=== PATIENT | female | born 1995 | race Two or more races ===

== ENCOUNTER 2025-08-25 07:22 | Emergency (ER) | payer MEDICAID, SELFPAY ==
[2025-08-25 07:32] VITALS: BP 100/64; PULSE 87; RESP 18; TEMP 36.9; O2SAT 99; BMI 25.0
--- NOTE | 2025-08-25 07:46 | XR_ITS ---
Examination: Abdomen sonogram, Limited Date and time of exam: August 25, 2025, 0931 hours INDICATIONS: Epigastric pain beginning 2 days ago Technique: Real-time arceo scale transabdominal sonographic images of the upper abdomen obtained. Findings: 6 mm gallbladder polyp No gallstones Normal gallbladder wall 0.3 cm Common bile duct 0.3 cm Pancreatic head 2.2 cm Liver 15 cm no liver lesions Normal hepatopetal portal venous flow Patent IVC IMPRESSION: 6 mm gallbladder polyp, negative for cholelithiasis, negative for cholecystitis Normal common bile duct
[2025-08-25] MEDS: ONDANSETRON ODT 4 MG TABRAP PO (07:52)
[2025-08-25] MEDS: HYDROcodone/APAP 5/325 TABLET 1 TAB PO (07:52)
[2025-08-25] MEDS: MG HYD/AL HYD/SIME (Maalox Reg) SUSP 30 ML UDC PO (07:52)
--- NOTE | 2025-08-25 07:52 | PD.EDABDPN ---
ED Abdominal Pain RME/HPI General Chief Complaint: Abdominal Pain Stated complaint: ABD PAIN ALL NIGHT 9/ Time seen by provider: 08/25/25 07:31 Arrival date/time: 08/25/25 07:22 30-year-old female with no known medical history presents to the emergency room with a chief complaint of 8 out of 10 epigastric abdominal pain that radiates to the right upper quadrant x 2 days Source: patient Mode of arrival: ambulatory Limitations: no limitations Related Data Previous Rx's ?Medication ?Instructions ?Recorded benzocaine 20 %-menthol 0.5 % 1 spray topical TID #56 grams 05/20/21 topical aerosol (Dermoplast (with menthol)) docusate sodium 100 mg capsule 100 mg PO BID #60 caps 05/20/21 (Colace) ibuprofen 800 mg tablet 800 mg PO Q6H PRN pain #120 tabs 05/20/21 lanolin 50 % topical ointment 1 applic topical TID PRN skin 05/20/21 irritation #15 grams vitamins with calcium 1 tab PO QDAY #60 tabs 05/20/21 no.72-iron 27 mg-folic acid 1 mg tablet ( Vitamins Plus Low Iron) omeprazole 40 mg capsule,delayed 40 mg PO QDAY #30 caps 08/25/25 release Allergies Allergy/AdvReac Type Severity Reaction Status Date / Time No Known Allergies Allergy Verified 08/25/25 07:25 Review of Systems Review of Systems Systems Reviewed: All systems reviewed, normal except as documented Constitutional Constitutional: Reports system reviewed and no additional complaints, except as documented, Denies fatigue, Denies fever(s), Denies headache(s) and Denies weakness Eyes Eyes: Reports system reviewed and no additional complaints, except as documented, Denies blurry vision and Denies change in vision ENT Ears, Nose, Mouth, and Throat: Reports system reviewed and no additional complaints, except as documented, Denies otalgia, Denies headache(s), Denies nasal congestion, Denies throat swelling and Denies vertigo Cardiovascular Cardiovascular: Reports system reviewed and no additional complaints, except as documented, Denies chest pain, Denies dyspnea and Denies dyspnea on exertion Respiratory Respiratory: Reports system reviewed and no additional complaints, except as documented, Denies chest congestion, Denies cough, Denies dyspnea and Denies dyspnea on exertion Gastrointestinal Gastrointestinal: Reports system reviewed and no additional complaints, except as documented, Reports abdominal pain, Reports cramping, Reports dyspepsia, Reports nausea and Denies vomiting Genitourinary Genitourinary: Reports system reviewed and no additional complaints, except as documented Musculoskeletal Musculoskeletal: Reports system reviewed and no additional complaints, except as documented and Denies back pain Integumentary/Breasts Skin/Breast: Reports system reviewed and no additional complaints, except as documented and Denies wounds Neurologic Neurologic: Reports system reviewed and no additional complaints, except as documented, Denies confusion, Denies headache(s), Denies lack of coordination, Denies vertigo and Denies weakness Psychiatric Psychiatric: Reports system reviewed and no additional complaints, except as documented, Denies anxiety, Denies confusion, Denies depression, Denies paranoia, Denies suicidal ideation and Denies tactile hallucinations Endocrine Endocrine: Reports system reviewed and no additional complaints, except as documented and Denies fatigue Hematologic/Lymphatic Hematologic/Lymphatic: Reports system reviewed and no additional complaints, except as documented and Denies lymphadenopathy Allergic/Immunologic Allergic/Immunologic: Reports system reviewed and no additional complaints, except as documented, Denies throat swelling and Denies urticaria ED Exam General Limitations: Present no limitations General appearance: Present alert and in no apparent distress Head Head exam: Present atraumatic Eye Eye exam: Present normal appearance, PERRL and EOMI ENT ENT exam: Present normal exam, normal oropharynx and mucous membranes moist Neck Neck exam: Present normal inspection, full ROM and trachea midline Chest Chest inspection: Present normal inspection and symmetric chest wall rise Respiratory Respiratory exam: Present normal lung sounds bilaterally Cardiovascular Cardiovascular exam: Present regular rate, normal rhythm and normal heart sounds Abdominal Exam Abdominal exam: Present soft and normal bowel sounds Extremities Exam Extremities exam: Present normal inspection and full ROM Back Exam Back exam: Present normal inspection and full ROM Neurological Exam Neurological exam: Present alert, oriented X3 and CN II-XII intact Psychiatric Psychiatric exam: Present normal affect and normal mood Skin Skin exam: Present warm, dry, intact and normal color Course Quality Measures none Orders Category Date Time Status US gall bladder Stat Exams 08/25/25 07:46 Completed CBC Stat Lab 08/25/25 08:41 Completed CMP [Comprehensive Metabolic Panel] Stat Lab 08/25/25 08:41 Completed HCG Qualitative,Urine Stat Lab 08/25/25 09:00 Completed Lipase Stat Lab 08/25/25 08:41 Completed UA [Urinalysis] Stat Lab 08/25/25 09:00 Completed Urine Culture Stat Lab 08/25/25 09:00 Received HYDROcodone*/APAP 5/325 [[place] 5/325] Med 08/25/25 07:47 Discontinued 1 tab PO X1 ONE Ondansetron Odt [Zofran Odt] Med 08/25/25 07:47 Discontinued 4 mg PO X1 ONE mg Hyd/Al Hyd/Mook Susp [Maalox Susp] Med 08/25/25 07:47 Discontinued 30 ml PO X1 ONE Vital Signs Vital signs: Vital Signs Temperature 98.4 F 08/25/25 07:32 Pulse Rate 87 08/25/25 07:32 Respiratory Rate 18 08/25/25 07:32 Blood Pressure 100/64 08/25/25 07:32 Pulse Oximetry (%) 99 08/25/25 07:32 Oxygen Delivery Method Room Air 08/25/25 07:32 O2 saturation 99% with normal limits Abdominal Pain MDM MDM Narrative MDM Narrative:: 30-year-old female with no known medical history presents to the emergency room with a chief complaint of 8 out of 10 epigastric abdominal pain that radiates to the right upper quadrant x 2 days Patient is hemodynamically stable and in no apparent distress Physical examination shows 8 out of 10 epigastric abdominal pain that radiates to the right upper quadrant with palpation. There is a negative Bragg sign There is no lower abdominal tenderness or pain Ultrasound of the gallbladder shows no cholelithiasis and no cholecystitis. There was an incidental finding of a 6 mm gallbladder polyp Patient was discharged and educated to follow-up with primary care provider in the next 24 to 48 hours and return to the emergency room for any evidence of worsening signs or symptoms Patient data External records reviewed:: [facility] previous records Clinical information provided by:: patient Social determinants that could affect healthcare access:: none Patient has the following chronic illnesses:: No chronic illness How is presenting disease/condition affected by chronic disease/condition?: no chronic disease Evaluation data The following diagnostics were reviewed and interpreted by me:: lab results and radiology exam(s) Lab and/or radiology exams considered but not ordered:: Labs and radiology exams considered and ordered Interpretation Summary: Ultrasound gallbladder-Findings: 6 mm gallbladder polyp No gallstones Normal gallbladder wall 0.3 cm Common bile duct 0.3 cm Pancreatic head 2.2 cm Liver 15 cm no liver lesions Normal hepatopetal portal venous flow Patent IVC IMPRESSION: 6 mm gallbladder polyp, negative for cholelithiasis, negative for cholecystitis Normal common bile duct Medications / Prescriptions Medications or Prescriptions considered but not ordered:: N/A Medication administrations:: Medication Administration History Discontinued Medications Hydrocodone Bitart/Acetaminophen (Hydrocodone/Apap 5/325 Tablet) 1 tab PO X1 ONE Stop: 08/25/25 07:48 Last Admin: 08/25/25 07:52 Dose: 1 tab Documented By: DOMINIC Al Hydrox/Mg Hydrox/Simethicone (Mg Hyd/Al Hyd/Mook (Maalox Reg) Susp 30 Ml Udc) 30 ml PO X1 ONE Stop: 08/25/25 07:48 Last Admin: 08/25/25 07:52 Dose: 30 ml Documented By: DOMINIC Ondansetron HCl (Ondansetron Odt 4 Mg Tabrap) 4 mg PO X1 ONE; Protocol Stop: 08/25/25 07:48 Last Admin: 08/25/25 07:52 Dose: 4 mg Documented By: DOMINIC Medication given Consultations Consultation(s) initiated? (list below): No Diagnosis Differential diagnosis abdominal pain: abdominal pain, gastroenteritis and other (Cholelithiasis/cholecystitis/) Most likely diagnosis given after review of the tests above:: Gastritis Admission Indicated Admission indicated?: not indicated Admission Request Was there a request for admission?: No Disposition Plan Disposition Plan: Discharge Discharge Attestation Discharge Attestation: The patient and all family members were given an opportunity to ask questions and understood the discharge instructions. Discharge instructions specifically effects, indications for sooner follow up or return to the emergency department, and the expected course of current diagnosis. Patient condition: Stable Discharge Plan Plan Patient Disposition: HOME (Self Care) Discharge Disposition comment: Stable Prescriptions/Referrals Prescriptions/Med Rec: New omeprazole 40 mg capsule,delayed release(DR/EC) 40 mg PO QDAY Qty: 30 0RF No Action Dermoplast (with menthol) 20-0.5 % aerosol 1 spray topical TID Qty: 56 0RF ibuprofen 800 mg tablet 800 mg PO Q6H MDD 4 PRN (Reason: pain) Qty: 120 0RF docusate sodium [Colace] 100 mg capsule 100 mg PO BID Qty: 60 0RF lanolin 50 % ointment 1 applic topical TID PRN (Reason: skin irritation) Qty: 15 0RF Vitamin Plus Low Iron 27 mg iron- 1 mg tablet 1 tab PO QDAY Qty: 60 0RF Referrals: Mica Oconnor PA-C [Primary Care Provider] - In 1 week Problem List Clinical Impression: Gastritis Patient/Caregiver Discharge Instructions Education Materials: ED Gastritis (Adult) Additional Instructions: Please follow-up with your primary care provider in the next 24 to 48 hours Ultrasound of your gallbladder was negative for any acute findings. There was an incidental finding of a polyp in your gallbladder. Blood work was within normal limits Medication was sent to your pharmacy to help you with your symptoms For any evidence of worsening signs or symptoms return to emergency room immediately Print Language: Ukrainian Stand Alone Forms: Lisa Award Info., Work/School Release, Patient Portal Info Letter
[2025-08-25 09:10] LABS: Basophils # (Auto) 0.0 Thou/mm3 (0.0-0.2); Basophils % (Auto) 0 % (0-2.5); Eosinophils # (Auto) 0.1 Thou/mm3 (0.0-0.5); Eosinophils % (Auto) 1 % (0-10); Hematocrit 41.6 % (36.0-46.0); Hemoglobin 14.5 g/dL (12.0-16.0); Immature Granulocytes Auto 0.03 Thou/mm3 (0.00-0.00); Lymphocytes # (Auto) 1.6 Thou/mm3 (1.0-4.8); Lymphocytes % (Auto) 19 % (10-50); Mean Corpuscular HGB Conc 34.9 g/dl (31.0-37.0); Mean Corpuscular Hemoglobin 31.8 pg (25.0-35.0); Mean Corpuscular Volume 91 fL (80-100); Monocytes # (Auto) 0.4 Thou/mm3 (0.0-0.8); Monocytes % (Auto) 4 % (0-12); Neutrophils # (Auto) 6.4 Thou/mm3 (1.8-7.7); Neutrophils % (Auto) 75 % (37-80); Nucleated Red Blood Cell # 0.00 Thou/mm3 (0.00-0.00); Nucleated Red Blood Cell % 0 /100 WBC (0); Platelet Count 149 Thou/mm3 (140-440); RDW Standard Deviation 43.6 fL (36.4-46.3); Red Blood Count 4.56 Miln/mm3 (4.00-5.20); White Blood Count 8.5 Thou/mm3 (3.6-11.0)
[2025-08-25 09:17] LABS: Alanine Aminotransferase 13 U/L (10-49); Albumin, Serum 4.7 gm/dL (3.5-5.0); Albumin/Globulin Ratio 1.9 (1.2-2.2); Alkaline Phosphatase 91 U/L (46-116); Anion Gap 10 (7-16); Aspartate Amino Transferase 16 U/L (0-34); BUN/Creatinine Ratio 11 Ratio (12-20); Bilirubin,Total 0.5 mg/dL (0.3-1.2); Blood Urea Nitrogen 8 mg/dL (9-23); Calcium 8.9 mg/dL (8.3-10.6); Calcium (Corrected) 8.9 mg/dL (8.5-10.1); Carbon Dioxide 24.9 mMol/L (20.0-31.0); Chloride 106 mMol/L (98-107); Creatinine (Component) 0.7 mg/dL (0.6-1.3); Estimated Creatinine Clearance 94.6 mL/min (>60); Globulin 2.5 gm/dL (2.3-3.5); Glucose 120 mg/dL (74-106); Lipase 54 U/L (12-53); Osmolality,Calculated 280 (275-295); Potassium 4.3 mMol/L (3.4-5.1); Sodium 141 mMol/L (136-145); Total Protein 7.2 gm/dL (5.7-8.2); eGFR > 60 See Note
[2025-08-25 09:34] LABS: Collection Type, Urine Clean Catch
[2025-08-25 09:46] LABS: HCG Qualitative,Urine Negative
[2025-08-25 10:11] LABS: Bilirubin,Urine Negative (Negative); Blood,Urine Negative (Negative); Color,Urine Yellow (Lt Yel-Yel); Glucose, Urine Negative (Negative); Ketones,Urine Negative (Negative); Leukocyte Esterase,Urine Positive (Negative); Nitrite,Urine Negative (Negative); PH,Urine 6.5 (5.0-7.0); Protein,Urine Trace (Neg - Trace); RBC,Urine 4 /hpf (0-3); Specific Gravity,Urine 1.030 (1.001-1.035); Squamous Epithelial Cell,Urine 35 /hpf (0-5); Urobilinogen,Urine Negative mg/dL (0.0-1.0); WBC,Urine 11 /hpf (0-5)
[2025-08-25 11:06] LABS: Clarity,Urine Hazy (Clear/Hazy)
== END 2025-08-25 11:27 | disposition home or self-care (01) ==
PROVIDERS: Nurse Practitioner Family; Emergency Provider Emergency Medicine; PCP Physician Assistant
DX: K29.70 Gastritis, unspecified, without bleeding (principal); K82.4 Cholesterolosis of gallbladder
CPT/HCPCS: 36415; 76705; 80053; 81001; 81025; 83690; 85025; 87086; 99283; Q0162; A9270